=== PATIENT | male | born 1970 | race Caucasian/White ===

== ENCOUNTER 2025-01-25 07:32 | Outpatient (CLI) | payer BC | END 2025-01-25 07:33 | disposition home or self-care (01) | LOC: ULT 07:32 | PROVIDERS: ATTEND Internal Medicine | DX: Z12.11 Encounter for screening for malignant neoplasm of colon (principal); R79.89 Other specified abnormal findings of blood chemistry; K76.0 Fatty (change of) liver, not elsewhere classified; R16.0 Hepatomegaly, not elsewhere classified | CPT/HCPCS: 76700 ==